=== PATIENT | female | born 1955 | race African-American/Black ===

== ENCOUNTER 2022-05-27 06:05 | Day surgery (SDC) | payer OTHER ==
[2022-05-22 12:16] VITALS: BMI 30.2
[2022-05-27] MEDS ORDERED: CEFAZOLIN 2 GM in DEXTROSE 5%-WATER - 50 ML IVPB ONE (07:00)
[2022-05-27] MEDS ORDERED: PROPOFOL 80 ML ONE (07:33)
[2022-05-27] MEDS ORDERED: ROPIVACAINE HCL 0.5% 30ML VIAL ONE (07:41)
[2022-05-27] MEDS ORDERED: MIDAZOLAM HCL 2 MG/2 ML SINGLE DOSE VIAL ONE (07:41)
[2022-05-27] MEDS ORDERED: TRANEXAMIC ACID 1000 MG/10 ML VIAL IVPUSH ONE (08:00)
[2022-05-27] MEDS ORDERED: BUPIVACAINE HCL 50 ML ONE (08:01)
[2022-05-27] MEDS ORDERED: PROPOFOL 40 ML ONE (09:17)
[2022-05-27] MEDS ORDERED: oxyCODONE HCL 5 MG TABLET PO PRN (10:35)
[2022-05-27] MEDS ORDERED: ONDANSETRON 4 MG/2 ML VIAL IVPUSH PRN (10:35)
[2022-05-27] MEDS ORDERED: LACTATED RINGERS SOLUTION 1,000 ML IV SCH ×2 (10:45→16:40)
[2022-05-27] MEDS ORDERED: ACETAMINOPHEN INJECTION 100 ML IVPB ONE (11:49)
[2022-05-27] MEDS ORDERED: ACETAMINOPHEN 1000 MG/100 ML BAG IVPB ONE (11:52)
[2022-05-27] MEDS ORDERED: MAG HYDROX/AL HYDROX/SIMETH 30 ML UNIT-DOSE CUP PO PRN (16:40)
[2022-05-27] MEDS ORDERED: MAGNESIUM HYDROX 2400MG/30ML ORAL SUSPENSION 30 ML CUP PO PRN (16:40)
[2022-05-27] MEDS: CEFAZOLIN SODIUM 2 GM in DEXTROSE 5%-WATER 100 ML IVPB SCH (17:14)
[2022-05-27] MEDS ORDERED: ACETAMINOPHEN 325 MG TABLET (FP) PO PRN (18:00)
[2022-05-27] MEDS: ACETAMINOPHEN 1000 MG/100 ML BAG IVPB SCH (18:11)
[2022-05-27] MEDS: ONDANSETRON 4 MG/2 ML VIAL IVPUSH PRN (19:00)
[2022-05-27] MEDS: FAMOTIDINE 20 MG TABLET PO SCH (21:26)
[2022-05-27] MEDS: ASPIRIN 81 MG CHEWABLE TABLETS PO SCH (21:26)
[2022-05-27] MEDS: LOSARTAN POTASSIUM 25 MG TABLET PO SCH (21:26)
[2022-05-27] MEDS: SENNOSIDES/DOCUSATE COMBO (SENNA PLUS) TABLET (UD) PO SCH (21:27)
[2022-05-27] MEDS: LACTATED RINGERS SOLUTION 1,000 ML IV SCH (21:27)
[2022-05-27] MEDS ORDERED: oxyCODONE HCL 10 MG SUSTAINED ACTING TABLET PO SCH (22:00)
[2022-05-27] MEDS ORDERED: LOSARTAN POTASSIUM 25 MG TABLET PO SCH (22:00)
[2022-05-27] MEDS: oxyCODONE HCL 5 MG TABLET PO PRN (22:28)
[2022-05-28] MEDS: ONDANSETRON 4 MG/2 ML VIAL IVPUSH PRN ×3 (01:00→12:17)
[2022-05-28] MEDS: CEFAZOLIN SODIUM 2 GM in DEXTROSE 5%-WATER 100 ML IVPB SCH (01:00)
[2022-05-28] MEDS: ACETAMINOPHEN 1000 MG/100 ML BAG IVPB SCH ×2 (01:57→06:34)
[2022-05-28] MEDS: oxyCODONE HCL 5 MG TABLET PO PRN (09:16)
[2022-05-28] MEDS: ASPIRIN 81 MG CHEWABLE TABLETS PO SCH ×2 (09:27→23:38)
[2022-05-28] MEDS: FAMOTIDINE 20 MG TABLET PO SCH ×2 (09:27→23:38)
[2022-05-28] MEDS: MULTIVITAMINS (DAILY MVI) TABLET (FP) PO SCH (09:28)
[2022-05-28] MEDS: LOSARTAN POTASSIUM 25 MG TABLET PO SCH ×2 (09:28→23:38)
[2022-05-28] MEDS: HYDROCHLOROTHIAZIDE 25 MG TABLET (FP) PO SCH (09:36)
[2022-05-28] MEDS: SENNOSIDES/DOCUSATE COMBO (SENNA PLUS) TABLET (UD) PO SCH ×3 (09:37→23:44)
[2022-05-28] MEDS: KETOROLAC TROMETHAMINE 30 MG/1 ML VIAL IVPUSH SCH ×3 (09:38→18:37)
[2022-05-28] MEDS ORDERED: DEXAMETHASONE 4 MG TABLET (FP) PO ONE (10:00)
[2022-05-28] MEDS ORDERED: CELECOXIB 200 MG CAPSULE PO SCH (10:00)
[2022-05-28] MEDS ORDERED: HYDROCHLOROTHIAZIDE 25 MG TABLET (FP) PO SCH (10:00)
[2022-05-28] MEDS: ACETAMINOPHEN 500 MG TABLET (FP) PO SCH ×2 (12:22→18:45)
[2022-05-28] MEDS ORDERED: PROMETHAZINE HCL 25 MG/1 ML VIAL IVPB ONE (14:00)
[2022-05-28] MEDS ORDERED: LACTATED RINGERS SOLUTION 1000 ML INFUS.BAG IV ONE (14:00)
[2022-05-28] MEDS ORDERED: FOSAPREPITANT DIMEGLUMINE 150 MG in SODIUM CHLORIDE 145 ML IVPB ONE (16:01)
[2022-05-28] MEDS ORDERED: KETOROLAC TROMETHAMINE 30 MG/1 ML VIAL IVPUSH SCH (16:30)
[2022-05-28] MEDS: LACTATED RINGERS SOLUTION 1,000 ML IV SCH (18:37)
[2022-05-28] MEDS ORDERED: PROMETHAZINE HCL 25 MG/1 ML VIAL IVPB PRN (20:00)
[2022-05-29] MEDS: ACETAMINOPHEN 500 MG TABLET (FP) PO SCH ×3 (01:00→12:56)
[2022-05-29] MEDS: KETOROLAC TROMETHAMINE 30 MG/1 ML VIAL IVPUSH SCH (02:42)
[2022-05-29] MEDS: FAMOTIDINE 20 MG TABLET PO SCH (09:28)
[2022-05-29] MEDS: HYDROCHLOROTHIAZIDE 25 MG TABLET (FP) PO SCH (09:28)
[2022-05-29] MEDS: ASPIRIN 81 MG CHEWABLE TABLETS PO SCH (09:28)
[2022-05-29] MEDS: MULTIVITAMINS (DAILY MVI) TABLET (FP) PO SCH (09:29)
[2022-05-29] MEDS: SENNOSIDES/DOCUSATE COMBO (SENNA PLUS) TABLET (UD) PO SCH (09:29)
[2022-05-29] MEDS: LOSARTAN POTASSIUM 25 MG TABLET PO SCH (09:29)
[2022-05-29 14:27] VITALS: BP 128/58; PULSE 79; RESP 17; TEMP 97.9
== END 2022-05-29 14:44 ==
LOC: FASUSAT 06:05 → FM/S 13:09 → FASUSAT 05-28 16:57 → FM/S 05-28 16:57 → UNDOADMIN 05-28 16:58 → FM/S 05-28 16:58 → FASUSAT 05-29 14:44
PROVIDERS: ATTEND Orthopaedic Surgery
PROC: 0SRC0J9 Replacement of Right Knee Joint with Synthetic Substitute, Cemented, Open Approach (ICD-10-PCS; principal; 2022-05-27 08:28)
DX: M17.11 Unilateral primary osteoarthritis, right knee (principal)
CPT/HCPCS: 27447; C1776; 73560-TC-RT-FY; 73630-TC-RT-FY; 94760; 97010-GP; 97116-GP; 97162-GP; C1889; C9803-CS; J1453; U0003; U0005

== ENCOUNTER 2022-07-22 06:09 | Day surgery (SDC) | payer OTHER ==
[2022-07-15 16:35] VITALS: BMI 30.2
[2022-07-22] MEDS ORDERED: ONDANSETRON 4 MG/2 ML VIAL IVPUSH PRN (07:01)
[2022-07-22] MEDS ORDERED: ACETAMINOPHEN 325 MG TABLET (FP) PO PRN (07:01)
[2022-07-22] MEDS ORDERED: LACTATED RINGERS SOLUTION 1,000 ML IV SCH (07:15)
[2022-07-22] MEDS ORDERED: PROPOFOL 20 ML ONE (07:38)
[2022-07-22] MEDS ORDERED: MIDAZOLAM HCL 2 MG/2 ML SINGLE DOSE VIAL ONE (07:38)
[2022-07-22] MEDS ORDERED: ONDANSETRON 4 MG/2 ML VIAL ONE (08:07)
[2022-07-22] MEDS ORDERED: FENTANYL CITRATE/PF 50 MCG/ML VIAL ONE ×2 (08:07→08:13)
[2022-07-22] MEDS ORDERED: ACETAMINOPHEN INJECTION 100 ML IVPB ONE (08:07)
[2022-07-22] MEDS ORDERED: KETOROLAC TROMETHAMINE 30 MG/1 ML VIAL ONE (08:13)
[2022-07-22] MEDS ORDERED: LOSARTAN POTASSIUM 25 MG TABLET PO ONE (08:16)
[2022-07-22] MEDS ORDERED: ACETAMINOPHEN 1000 MG/100 ML BAG IVPB ONE (08:16)
[2022-07-22] MEDS ORDERED: KETOROLAC TROMETHAMINE 30 MG/1 ML VIAL IVPUSH ONE (08:16)
[2022-07-22 08:24] VITALS: TEMP 97
[2022-07-22 09:16] VITALS: PULSE 56
[2022-07-22 09:21] VITALS: BP 155/83; RESP 16
== END 2022-07-22 09:40 | disposition home or self-care (01) ==
LOC: FASU 06:09
PROVIDERS: ATTEND Orthopaedic Surgery
PROC: 0SSCXZZ Reposition Right Knee Joint, External Approach (ICD-10-PCS; principal; 2022-07-22 07:50)
DX: M25.661 Stiffness of right knee, not elsewhere classified (principal)
CPT/HCPCS: 94760